=== PATIENT | male | born 1980 | race African-American/Black ===

== ENCOUNTER 2020-03-03 10:48 | Observation (INO) | payer MEDICAID, SELFPAY ==
[2020-03-03] VITALS (10 sets, daily range): BP systolic 130–151; BP diastolic 66–88; PULSE 64–81; RESP 15–18; TEMP 36.4–37.1; O2SAT 97–100; BMI 31.1; BMI 31.2; BMI 27.9
--- NOTE | 2020-03-03 11:03 | EKG12_ITS ---
Test Reason : Blood Pressure : / mmHG Vent. Rate : 075 BPM Atrial Rate : 075 BPM P-R Int : 142 ms QRS Dur : 082 ms QT Int : 362 ms P-R-T Axes : 032 001 003 degrees QTc Int : 404 ms Normal sinus rhythm Minimal voltage criteria for LVH, may be normal variant Borderline ECG Confirmed by MAZIN NOVAK, EAGLE ([id number]), editor trade journal DANIE COWART ([id number]) on 03/05/2020 7:52:57 AM Referred By: JUVENAL Confirmed By:EAGLE RETANA MD
--- NOTE | 2020-03-03 11:16 | NURSING ---
NO OLD EKGS
[2020-03-03] MEDS: Aspirin 81 MG TAB.CHEW 324 MG PO (11:17)
[2020-03-03 11:20] LABS: Absolute Lymphocyte Count 1.26 X10^3/uL (0.83-4.51); Absolute Neutrophil Count 2.5 X10^3/uL (2.0-7.7); Basophil# 0.05 X10^3/uL; Basophil% 1.2 % (0-1); Eosinophil# 0.06 X10^3/uL; Eosinophils% 1.5 % (0-5); Hematocrit 42.6 % (40-54); Hemoglobin 14.4 g/dL (13.0-16.5); Lymphocyte # 1.26 X10^3/ul (4.0); Lymphocyte % 30.8 % (19-41); Mean Corp Hgb Conc 33.8 g/dL (32-36); Mean Corpuscular Hgb 28.2 pg (27.0-32.0); Mean Corpuscular Volume 83.4 fL (80-94); Mean Platelet Vol. 9.1 fl (6.2-12.0); Monocyte# 0.23 X10^3/uL; Monocyte% 5.6 % (0-10); NRBC Flagged by Analyzer 0 % (0-5); Neutrophil # 2.48 X10^3/uL (2.7-7.7); Neutrophil % 60.7 % (47-70); Platelet Count 274 K/mm3 (150-450); RBC Distribution Width CV 12.7 % (11.6-14.6); RBC Distribution Width SD 38.4 fl (35.1-43.9); Red Blood Count 5.11 M/mm3 (4.6-6.2); White Blood Count 4.1 K/mm3 (4.4-11.0)
[2020-03-03 11:27] LABS: D-Dimer Quantitative (DVT/PE) 1.35 FEU/ug/m (0.27-0.49)
--- NOTE | 2020-03-03 11:27 | RAD_ITS ---
STUDY: X-RAY CHEST REASON FOR EXAM: Male, 39 years old. CHEST PAIN STARTING A FEW HOURS AGO TECHNIQUE: PA and lateral views of the chest. COMPARISON: None. FINDINGS: EKG electrodes are seen. The lungs are clear and expanded. There is no demonstrated pleural abnormality. Normal size heart. Normal mediastinum and rere. Normal visualized pulmonary arteries. Normal visualized aortic arch and descending thoracic aorta. Normal visualized thoracic spine. Normal visualized ribs, clavicles, and shoulders. There is no demonstrated abnormality of the visualized soft tissue structures of the upper abdomen. RAD/Chest PA and Lateral IMPRESSION: Normal x-ray examination of the chest. Electronically Signed: Sergei Silvestre MD at 12:09 EST , Service support ,
--- NOTE | 2020-03-03 11:27 | NURSING ---
Dr. Fernandez notified of elevated DDimer 1.35
[2020-03-03 11:28] LABS: Anion Gap 6 (5-15); BUN 14 mg/dL (7-18); BUN/Creat Ratio 10.3 RATIO (10-20); Calcium,Total 8.9 mg/dL (8.5-10.1); Chloride 105 mmol/L (98-107); Creatinine, Serum 1.36 mg/dL (0.70-1.30); EST Glomerular Filtration Rate 63 mL/min (>60); Est Glom Filt Rate - Afr Amer 76 mL/min (>60); Estimated Creatinine Clearance 81.63 ml/min; Glucose 131 mg/dL (74-106); Potassium 3.6 mmol/L (3.5-5.1); Sodium Level 138 mmol/L (136-145)
--- NOTE | 2020-03-03 11:30 | CT_ITS ---
STUDY: CTA CHEST REASON FOR EXAM: Male, 39 years old. CHEST PAIN RADIATION DOSAGE (If Supplied By Facility): CTDIvol = ( 11.87 ) mGy, DLP = ( 435.58 ) mGycm TECHNIQUE: The examination was performed with the intravenous administration of IV 100mL Isovue-370. Post-processing of the angiographic images was performed, with multiplanar reformation and 3D reconstruction. Individualized dose optimization techniques were used for this CT. COMPARISON: None. FINDINGS: Normal enhancement of the main pulmonary artery and right and left pulmonary arteries. Normal enhancement of the bilateral peripheral pulmonary arteries. There is no demonstrated pulmonary embolism. Normal thoracic aorta and visualized great vessels. There is no demonstrated aortic dissection. Normal heart and pericardium. Normal mediastinum. Normal hilar regions. Normal visualized trachea and bronchi. The lungs are well expanded. Normal pulmonary parenchyma. Normal pleura. Normal chest wall structures. Normal osseous structures. Questionable tiny gallstones along the dependent portion of the gallbladder lumen. Small hiatal hernia. CT/CTA Chest W/WO Contrast IMPRESSION: Normal CTA chest examination, without a demonstrated pulmonary embolism or arterial dissection. Electronically Signed: Sergei Silvestre MD at 12:14 EST , Service support ,
[2020-03-03 11:34] LABS: Alcohol, Blood (Medical)-Serum < 3.0 mg/dL
[2020-03-03 12:14] LABS: Amphetamine Urine VISTA NEGATIVE (<1000 ng/mL); Barbiturate Urine VISTA NEGATIVE (< 200 ng/mL); Benzodiazepine Urine VISTA NEGATIVE (< 200 ng/mL); Cocaine Urine VISTA NEGATIVE (< 300 ng/mL); Ecstacy Urine VISTA NEGATIVE (< 500 ng/mL); Methadone Urine VISTA NEGATIVE (< 300 ng/mL); PCP Urine VISTA NEGATIVE (< 25 ng/mL); THC Urine VISTA NEGATIVE (< 50 ng/mL); Vista UDS pH Range 5
[2020-03-03] MEDS: Nitroglycerin SL (ED/IMG/CATH) 0.4 MG TABLET SUBLINGUAL (13:21)
--- NOTE | 2020-03-03 13:42 | ED.DCSUM_ITS ---
History of Present Illness Chief Complaint: Chest Pain Informant: Patient Narrative: Patient presenting for evaluation secondary to chest pain. Patient reports that he was at work today he had a sudden onset of chest pain. He describes this as a heaviness on his chest that is associated with some lightheadedness and shortness of breath. Patient states that the pain is worse with taking deep breath. He is never really had any prior similar episodes in the past. Patient denies any palpitations. Denies any recent illnesses such as fever cough nausea vomiting diarrhea. Denies any cardiac disease, he is non-smoker but he does have a strong family history of hypertension diabetes, although he states that there is no strong family history of premature heart disease. He denies any DVT or PE risk factors. Review of systems otherwise negative. Past Medical History - Allergies and Home Meds Allergies/Adverse Reactions: Allergies No Known Allergies Allergy (Verified 03/03/20 11:17) Primary Care Physician: Care Physician,No Primary [Primary Care Provider] - Past Medical History: - - Denies personal medical history Lives: With Family Smoking Status: Never smoker Alcohol: None Drugs: None Review of Systems All systems negative except as indicated General: Denies: Chills, Fever, Sweats Eyes: Denies: Visual changes - bilaterally, Diplopia ENT: Denies: Rhinorrhea, Sore throat Cardiovascular: Reports: Chest pain Respiratory: Reports: Dyspnea Gastrointestinal: Denies: Abdominal pain, Nausea, Vomiting, Diarrhea, Melena, Hematochezia Genitourinary: Denies: Dysuria, Hematuria, Frequency Musculoskeletal: Denies: Back pain, Extremity Pain Skin: Denies: Rash, Wounds Neurological: Denies: Headache, Weakness, Numbness Physical Exam Vital Signs/Narrative: Vital Signs Temp Pulse Resp BP Pulse Ox 03/03/20 13:32 97.9 F 03/03/20 13:21 67 137/88 H 03/03/20 13:20 64 18 137/88 H 100 03/03/20 11:16 75 16 132/87 H 100 03/03/20 10:51 98.7 F 81 15 151/83 H 100 Inital Vital Signs reviewed: Yes General: Well nourished, Well developed, No Acute Distress Head: Normocephalic, Atraumatic Eyes: Perrl, EOMI ENT: Moist mucous membranes, No rhinorrhea Neck: Supple, Nontender Cardiovascular: Regular rate, Regular rhythm, No murmurs Respiratory: No distress, CTA bilaterally, Chest nontender Abdomen: Soft, Nontender, Nondistended, Normal bowel sounds Back: Nontender, Normal Inspection Extremities: Nontender, No edema Skin: Normal color, No rash Neurological: Alert, Oriented x3, Cranial nerves II-XII grossly intact, Normal Strength, Normal Sensation Psychological: Normal affect, Normal Mood Diagnostic/Tx/Re-eval Chest X-Ray - ED: 2 View, Read by ED Physician, Normal Clinical Impression(s) from Imaging Studies Chest X-Ray 03/03/20 11:27 IMPRESSION: Normal x-ray examination of the chest. Electronically Signed: Sergei Silvestre MD at 12:09 EST , Service support , Chest CTA 03/03/20 11:30 IMPRESSION: Normal CTA chest examination, without a demonstrated pulmonary embolism or arterial dissection. Electronically Signed: Sergei Silvestre MD at 12:14 EST , Service support , Laboratory Data 03/03/20 03/03/20 03/03/20 11:00 11:00 11:00 WBC 4.1 L RBC 5.11 Hgb 14.4 Hct 42.6 MCV 83.4 MCH 28.2 MCHC 33.8 RDW Std Deviation 38.4 RDW Coeff of Parveen 12.7 Plt Count 274 MPV 9.1 Immature Gran % (Auto) 0.200 Neut % (Auto) 60.7 Lymph % (Auto) 30.8 [place] % (Auto) 5.6 Eos % (Auto) 1.5 Baso % (Auto) 1.2 H Absolute Neuts (auto) 2.5 Absolute Lymphs (auto) 1.26 Nucleated RBC % 0 D-Dimer Quant (PE/DVT) 1.35 H* Sodium 138 Potassium 3.6 Chloride 105 Carbon Dioxide 27.0 Anion Gap 6 BUN 14 Creatinine 1.36 H Estim Creat Clear Calc 81.63 Est GFR (MDRD) Af Amer 76 Est GFR (MDRD) Non-Af 63 BUN/Creatinine Ratio 10.3 Glucose 131 H Calcium 8.9 Troponin I < 0.015 Urine Opiates Screen Urine Methadone Screen Ur Barbiturates Screen Ur Phencyclidine Scrn Ur Amphetamines Screen U Methamphetamin-MDMA U Benzodiazepines Scrn Urine Cocaine Screen U Cannabinoids Screen Ur Drug Screen Comment Ethyl Alcohol 03/03/20 03/03/20 11:00 11:49 WBC RBC Hgb Hct MCV MCH MCHC RDW Std Deviation RDW Coeff of Parveen Plt Count MPV Immature Gran % (Auto) Neut % (Auto) Lymph % (Auto) [place] % (Auto) Eos % (Auto) Baso % (Auto) Absolute Neuts (auto) Absolute Lymphs (auto) Nucleated RBC % D-Dimer Quant (PE/DVT) Sodium Potassium Chloride Carbon Dioxide Anion Gap BUN Creatinine Estim Creat Clear Calc Est GFR (MDRD) Af Amer Est GFR (MDRD) Non-Af BUN/Creatinine Ratio Glucose Calcium Troponin I Urine Opiates Screen NEGATIVE Urine Methadone Screen NEGATIVE Ur Barbiturates Screen NEGATIVE Ur Phencyclidine Scrn NEGATIVE Ur Amphetamines Screen NEGATIVE U Methamphetamin-MDMA NEGATIVE U Benzodiazepines Scrn NEGATIVE Urine Cocaine Screen NEGATIVE U Cannabinoids Screen NEGATIVE Ur Drug Screen Comment Ethyl Alcohol < 3.0 - Medical Decision Making Patient presented secondary to chest pain. Patient does not seem to have a ton of risk factors, but he has a very concerning story for the possibility of cardiac chest pain. Patient was given aspirin and nitroglycerin, he continues to have some pain. His initial cardiac enzyme was negative, EKG did not demonstrate any evidence of acute ischemia, did show some LVH type changes. D- dimer was pathologically elevated, so CT angiogram of the chest was ordered. This is read as negative. Patient's heart score is a maximum of 3, but he has a very concerning history I believe that he requires admission for observation and provocative stress testing. I will discuss this with the hospitalist. ED Disposition - Plan for ED Patient: Disposition: Acute Care Hospital [facility] Diagnosis: Chest pain
--- NOTE | 2020-03-03 14:33 | NURSING ---
DR RICE FOR DR POSEY
[2020-03-03] MEDS: Acetaminophen 325 MG Tablet 650 MG PO (16:10)
--- NOTE | 2020-03-03 18:24 | HP.PCM_ITS ---
History of Present Illness Date of Admission: 03/03/20 Chief Complaint: Chest pain The patient is a 39 year old M with a PMH as below who presents to the hospital with chest pain. 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 He was found to have an elevated D-dimer with a normal CTA of his chest, can proceed with a Doppler of his lower extremities he denies any swelling or calf pain. He has never had any pain like this before and it was wrapping around his chest and going up into his left armpit. He states that as long as he does not take any deep breaths then he does not have any chest pain. Denies any lightheadedness or dizziness and denies any significant radiation. Initial lab work demonstrated normal troponin with a nonischemic EKG, repeat troponin was also unremarkable. No significant family history of heart disease however he does have a significant family history of hypertension and diabetes. Past Medical History Allergies No Known Allergies Allergy (Verified 03/03/20 11:17) Home Medications: Ambulatory Orders Medication Instructions Recorded NK 03/03/20 Surgical History: no surgical history Lives: With Family Smoking Status: Never smoker Alcohol: None Drugs: None - *Family History Maternal History Items: Diabetes, Hypertension Paternal History Items: Diabetes, Hypertension Review of Systems Constitutional: Denies: Chills, Fever, Weight Change HEENT: Denies: Head Aches, Sinus Congestion, Sinus Drainage Cardiovascular: Reports: Chest Pain, Chest Pressure. Denies: Palpitations Respiratory: Denies: Cough, Shortness of Breath, Shortness of breath at rest, Shortness of breath upon exertion, Sputum production Gastrointestinal: Denies: Abdominal Pain, Nausea, Vomiting Genitourinary: Denies: Dysuria Musculoskeletal: Denies: Joint Pain, Joint Tenderness Skin: Denies: Rash, Wounds Neurological: Denies: Numbness, Tingling, Focal weakness Psychiatric: Denies: Anxiety, Depression Hematologic/ Lymphatic: Denies: Easy Bruising, Easy Bleeding VTE Information - Inpt Only VTE Present on Admission: No Patient Problems: Active and Suspected Problems Chest pain (Acute) - Physical Exam Vitals/I&O's: Vital Signs Temp Pulse Resp BP Pulse Ox 98 F 64 16 130/85 H 97 03/03/20 15:44 03/03/20 15:44 03/03/20 15:44 03/03/20 15:44 03/03/20 15:44 Oxygen Delivery Method Room Air Weight: 206 lb 5.643 oz Body Mass Index (BMI) 27.9 Intake and Output for Last 24 Hours 03/01/20 03/02/20 03/03/20 23:59 23:59 23:59 Intake Total 480 / 480 Balance 480 / 480 General: Alert, Oriented x3, Cooperative, No apparent distress HEENT: Atraumatic, PERRLA, EOMI, Normocephalic Oral: Moist Mucosa Neck: Supple, No JVD Lungs: Clear to auscultation, Normal air movement, No rhonchi, No wheeze, No rales Cardiovascular: Regular rate, Regular Rhythm, Normal S1, Normal S2, No murmurs, - - His chest pain was reproduced on palpation Abdomen: Soft, Non Tender, Non-Distended, No Hepato-splenomegaly Extremities: No edema, Capillary Refill Less than 3 Seconds Skin: No rashes, No breakdown Neurological: Neuro grossly intact, Sensory exam intact to light touch and pain Psych/Mental Status: Normal Affect, Appropriate Laboratory Results 03/03/20 11:00: WBC 4.1 L, RBC 5.11, Hgb 14.4, Hct 42.6, MCV 83.4, MCH 28.2, MCHC 33.8, RDW Std Deviation 38.4, RDW Coeff of Parveen 12.7, Plt Count 274, MPV 9.1, Immature Gran % (Auto) 0.200, Neut % (Auto) 60.7, Lymph % (Auto) 30.8, [place] % (Auto) 5.6, Eos % (Auto) 1.5, Baso % (Auto) 1.2 H, Absolute Neuts (auto) 2.5, Absolute Lymphs (auto) 1.26, Nucleated RBC % 0 03/03/20 11:00: D-Dimer Quant (PE/DVT) 1.35 H* 03/03/20 11:00: Sodium 138, Potassium 3.6, Chloride 105, Carbon Dioxide 27.0, Anion Gap 6, BUN 14, Creatinine 1.36 H, Estim Creat Clear Calc 81.63, Est GFR (MDRD) Af Amer 76, Est GFR (MDRD) Non-Af 63, BUN/Creatinine Ratio 10.3, Glucose 131 H, Calcium 8.9, Troponin I < 0.015 03/03/20 11:00: Ethyl Alcohol < 3.0 03/03/20 11:49: Urine Opiates Screen NEGATIVE, Urine Methadone Screen NEGATIVE, Ur Barbiturates Screen NEGATIVE, Ur Phencyclidine Scrn NEGATIVE, Ur Amphetamines Screen NEGATIVE, U Methamphetamin-MDMA NEGATIVE, U Benzodiazepines Scrn NEGATIVE, Urine Cocaine Screen NEGATIVE, U Cannabinoids Screen NEGATIVE, Ur Drug Screen Comment 03/03/20 14:13: Troponin I < 0.015 03/03/20 16:36: Troponin I Pending Current Medications Acetaminophen (Acetaminophen 325 Mg Tablet) 650 mg PO Q6H PRN PRN PRN Reason: Pain Score 1-10/Temp > 100.7 F Last Admin: 03/03/20 16:10 Dose: 650 mg Documented by: Melatonin (Melatonin 3 Mg Tablet) 3 mg PO QHS PRN PRN PRN Reason: INSOMNIA Nitroglycerin (Nitroglycerin (Inpatient Use) 0.4 Mg Tab.Subl) 0.4 mg SUBLINGUAL Q5M PRN PRN Reason: CARDIAC/CHEST PAIN Ondansetron HCl (Ondansetron 4 Mg/2 Ml Vial) 4 mg IV Q8H PRN PRN PRN Reason: NAUSEA/VOMITING Sodium Chloride (0.9% Saline Lock 10 Ml Syringe) 10 - 40 ml IV UD PRN PRN Reason: SALINE FLUSH Assessment/Plan All Active Problems Chest pain (Acute) 1. Chest pain rule out/elevated D-dimer -Initial troponin and follow-up troponin are both negative, EKG is nonischemic -He does have a headache from the nitroglycerin which did not relieve his chest pain -He does have tenderness to his left chest with palpation which is the pain that he was feeling prior to coming into the hospital -He did receive aspirin in the ED, will proceed with stress echo in the morning -Also obtain a lipid panel, and if necessary can start him on statin -Denies any trauma or anything like that to explain his chest wall muscle pain, and with his elevated D-dimer and a normal CTA we will proceed with venous Doppler of his lower extremities DVT: Low risk OBSV E&M: [id number] Initial observation care L2
--- NOTE | 2020-03-03 18:28 | VDLE_ITS ---
Reason For Study: elevated D-Dimer RIGHT LEFT GSV is normal. GSV is normal. CFV is compressible, spontaneous, phasic, CFV is compressible, spontaneous, phasic, competent and demonstrates normal competent, and demonstrates normal augmentation. augmentation. FV is compressible, spontaneous, phasic, FV is compressible, spontaneous, phasic, competent and demonstrates normal competent and demonstrates normal augmentation. augmentation. POP V is compressible, spontaneous, phasic, POP V is compressible, spontaneous, phasic, competent and demonstrates normal competent and demonstrates normal augmentation. augmentation. T/P Trunk is compressible. T/P Trunk is compressible. PTV is compressible. PTV is compressible. RT PerV is compressible. LT PerV is compressible. Procedure This is a venous duplex using B-mode, color flow and spectral Doppler. Exam performed portable in patient room. The exam was diagnostic. A preliminary report was called and/or faxed to PCU charge hand. Interpretation Summary No evidence for acute deep venous thrombosis bilateral lower extremities with patent and compressible bilateral great saphenous veins. Ordering Physician: Reji Boyd Performed By: Oliverio Montero RVT
--- NOTE | 2020-03-03 23:52 | PCS.PANDOC ---
PANDEMIC DOCUMENTATION INITIATED: Date: 03/03/2020 Time: [id number]
[2020-03-04 02:40] VITALS: BP 127/75; PULSE 66; RESP 18; TEMP 36.8; O2SAT 98
[2020-03-04 03:00] VITALS: PULSE 62
--- NOTE | 2020-03-04 05:55 | STEWCON_ITS ---
Reason For Study: CHEST PAIN Stress Results Protocol: Stress Echocardiogram Maximum Predicted HR: 183 bpm Target HR: 156 bpm % Maximum Predicted HR: 96 % DurationHeart Rate Stage (mm:ss) (bpm) BP Comment BASELINE 68 124/90DILUTED DEFINITY 4 CC USED LALITA PROTOCOL- STAGE 1 3:00 131 132/90NO SX LALITA PROTOCOL- STAGE 2 3:00 153 162/94NO SX LALITA PROTOCOL- STAGE 3 3:00 176 168/98DYSPNEA RECOVERY 98 118/74SX SUBSIDED Stress Duration: 9:00 mm:ss Maximum Stress HR: 176 bpm METS: 10 Baseline Echocardiogram Findings Stress Echo Wall motion Data Resting WM Intermediate WM Stress WM Resting Wall Motion Wall Motion Stress All segments Normal. All segments Hyperkinetic. Ejection Fraction 55 %. Ejection Fraction 75 %. Stress Results Heart rate response: Appropriate Blood pressure response: Resting hypertension-appropriate response Arrhythmias: Isolated PVC during exercise Functional status: Good Stopped secondary to: Dyspnea. EKG Data Baseline ECG: Sinus rhythm. Peak exercise ECG: No obvious ECG changes. Symptoms with Stress No report of chest discomfort during exercise or recovery. Interpretation Summary 1. Contrast injection performed 2. Negative (adequate) stress echocardiogram Ordering Physician: PILY RICE MD Referring Physician: NO PCP Performed By: Eileen Hui RDCS
--- NOTE | 2020-03-04 05:55 | EKG12_ITS ---
Test Reason : AM EKG Blood Pressure : / mmHG Vent. Rate : 068 BPM Atrial Rate : 068 BPM P-R Int : 148 ms QRS Dur : 094 ms QT Int : 390 ms P-R-T Axes : 032 007 000 degrees QTc Int : 414 ms Normal sinus rhythm Normal ECG Confirmed by MAZIN NOVAK, EAGLE ([id number]), book editor RICHELLE ALTMAN ([id number]) on 03/07/2020 9:48:21 AM Referred By: DR FARRELL Confirmed By:EAGLE RETANA MD
[2020-03-04 06:06] LABS: Absolute Lymphocyte Count 1.73 X10^3/uL (0.83-4.51); Absolute Neutrophil Count 1.7 X10^3/uL (2.0-7.7); Basophil# 0.06 X10^3/uL; Basophil% 1.6 % (0-1); Eosinophil# 0.08 X10^3/uL; Eosinophils% 2.1 % (0-5); Hematocrit 42.2 % (40-54); Hemoglobin 14.7 g/dL (13.0-16.5); Lymphocyte # 1.73 X10^3/ul (4.0); Lymphocyte % 45.2 % (19-41); Mean Corp Hgb Conc 34.8 g/dL (32-36); Mean Corpuscular Hgb 28.6 pg (27.0-32.0); Mean Corpuscular Volume 82.1 fL (80-94); Monocyte# 0.23 X10^3/uL; NRBC Flagged by Analyzer 0 % (0-5); Neutrophil # 1.72 X10^3/uL (2.7-7.7); Neutrophil % 44.8 % (47-70); Platelet Count 236 K/mm3 (150-450); RBC Distribution Width CV 12.7 % (11.6-14.6); RBC Distribution Width SD 37.7 fl (35.1-43.9); Red Blood Count 5.14 M/mm3 (4.6-6.2); White Blood Count 3.8 K/mm3 (4.4-11.0)
[2020-03-04 06:36] LABS: Anion Gap 4 (5-15); BUN 14 mg/dL (7-18); Calcium,Total 8.8 mg/dL (8.5-10.1); Chloride 105 mmol/L (98-107); Cholesterol 218 mg/dL (200); Creatinine, Serum 1.17 mg/dL (0.70-1.30); EST Glomerular Filtration Rate 74 mL/min (>60); Est Glom Filt Rate - Afr Amer 90 mL/min (>60); Estimated Creatinine Clearance 94.88 ml/min; Glucose 95 mg/dL (74-106); High Density Lipoprotein 47 mg/dL; Sodium Level 137 mmol/L (136-145); Triglycerides 133 mg/dL; Very Low Density Lipoprotein 27 mg/dL (5-40)
[2020-03-04 07:09] VITALS: PULSE 70
[2020-03-04 08:38] VITALS: BP 128/77; PULSE 86; RESP 14; TEMP 36.8; O2SAT 98
[2020-03-04 11:46] VITALS: PULSE 66
--- NOTE | 2020-03-04 13:15 | DCINST_ITS ---
- Discharge Diagnoses Current Active Problems: Current Active and Chronic Problems Chest pain (Acute) You will use the following diet at home:: Regular Your food should be the consistency of: Regular Your liquids should be the consistency of: Regular/Thin Discharge Activity: Return to Normal Activity Call your doctor if you observe: Fever of 101 or Higher, Shortness of breath, Dizziness, Fainting spells, Swelling in the ankles, Chest pain, Increased palpitations (irregular heartbeat) Allergies/Adverse Reactions: Allergies No Known Allergies Allergy (Verified 03/03/20 11:17) Medications to take at Discharge NK 03/03/20 Primary Care Physician: Care Physician,No Primary [Primary Care Provider] - Please follow up with your Primary Care Physician in: 3-5 days Test Results: Test results from this visit will be discussed in further detail at your follow- up appointment, if applicable.
[2020-03-04 14:35] VITALS: BP 143/84; PULSE 80; RESP 14; TEMP 36.6; O2SAT 99
--- NOTE | 2020-03-04 15:10 | DS.PCM_ITS ---
Discharge Date and Diagnosis - Problem List Patient Problems: Active and Suspected Problems Chest pain (Acute) Date of Admission: 03/03/20 Date of Discharge: 03/04/20 - Primary Discharge Diagnosis Acute Problems: Active Problems Chest pain (Acute) Hospital Course and Treatment Imaging Results: Clinical Impression(s) from Imaging Studies Chest X-Ray 03/03/20 11:27 IMPRESSION: Normal x-ray examination of the chest. Electronically Signed: Sergei Silvestre MD at 12:09 EST , Service support , Chest CTA 03/03/20 11:30 IMPRESSION: Normal CTA chest examination, without a demonstrated pulmonary embolism or arterial dissection. Electronically Signed: Sergei Silvestre MD at 12:14 EST , Service support , Reason For Study: CHEST PAIN Stress Results Protocol: Stress Echocardiogram Maximum Predicted HR: 183 bpm Target HR: 156 bpm % Maximum Predicted HR: 96 % DurationHeart Rate Stage (mm:ss) (bpm) BP Comment BASELINE 68 124/90DILUTED DEFINITY 4 CC USED LALITA PROTOCOL- STAGE 1 3:00 131 132/90NO SX LALITA PROTOCOL- STAGE 2 3:00 153 162/94NO SX LALITA PROTOCOL- STAGE 3 3:00 176 168/98DYSPNEA RECOVERY 98 118/74SX SUBSIDED Stress Duration: 9:00 mm:ss Maximum Stress HR: 176 bpm METS: 10 Baseline Echocardiogram Findings Stress Echo Wall motion Data Resting WM Intermediate WM Stress WM Resting Wall Motion Wall Motion Stress All segments Normal. All segments Hyperkinetic. Ejection Fraction 55 %. Ejection Fraction 75 %. Stress Results Heart rate response: Appropriate Blood pressure response: Resting hypertension-appropriate response Arrhythmias: Isolated PVC during exercise Functional status: Good Stopped secondary to: Dyspnea. EKG Data Baseline ECG: Sinus rhythm. Peak exercise ECG: No obvious ECG changes. Symptoms with Stress No report of chest discomfort during exercise or recovery. Interpretation Summary 1. Contrast injection performed 2. Negative (adequate) stress echocardiogram Venous Doppler: Interpretation Summary No evidence for acute deep venous thrombosis bilateral lower extremities with patent and compressible bilateral great saphenous veins. Operations: None Procedures: 2-D Echocardiogram, Stress test Summary of Care Provided: Per HPI: The patient is a 39 year old M with a PMH as below who presents to the hospital with chest pain. 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 He was found to have an elevated D-dimer with a normal CTA of his chest, can proceed with a Doppler of his lower extremities he denies any swelling or calf pain. He has never had any pain like this before and it was wrapping around his chest and going up into his left armpit. He states that as long as he does not take any deep breaths then he does not have any chest pain. Denies any lightheadedness or dizziness and denies any significant radiation. Initial lab work demonstrated normal troponin with a nonischemic EKG, repeat troponin was also unremarkable. No significant family history of heart disease however he does have a significant family history of hypertension and diabetes. Hospital Course: 1. Chest pain rule out/elevated D-dimer?39-year-old male presented from work with chest pain while being active. His pain was across his left chest and was tender to palpation and was the same pain that he was experiencing that brought him into the hospital. 3 troponins were negative, his EKG was nonischemic. He did have an elevated D-dimer and a CTA was done in the ED which was negative for PE. Venous Doppler was negative for DVTs bilaterally. He did have a stress echo which was unremarkable and did not show any ischemia. He did have a lipid panel on the morning of discharge which demonstrated a cholesterol of 218 and an LDL of 144. Was recommended that he follow-up as an outpatient with primary care doctor for follow-up and management if this becomes an issue as he gets older. He is very active and his BMI is 27.9. I discussed with him the plan for discharge today and he expressed understanding of the risk benefits of going home and would like to go home today. Patient Problems: Active and Suspected Problems Chest pain (Acute) - Physical Exam Vitals/I&O's: Vital Signs Temp Pulse Resp BP Pulse Ox 98 F 80 14 143/84 H 99 03/04/20 14:35 03/04/20 14:35 03/04/20 14:35 03/04/20 14:35 03/04/20 14:35 Oxygen Delivery Method Room Air Weight: 206 lb 5.643 oz Body Mass Index (BMI) 27.9 Intake and Output for Last 24 Hours 03/02/20 03/03/20 03/04/20 23:59 23:59 23:59 Intake Total 480 / 480 1270 / 1270 Balance 480 / 480 1270 / 1270 General: Alert, Oriented x3, Cooperative, No apparent distress HEENT: Atraumatic, PERRLA, EOMI, Normocephalic Oral: Moist Mucosa Neck: Supple, No JVD Lungs: Clear to auscultation, Normal air movement, No rhonchi, No wheeze, No rales Cardiovascular: Regular rate, Regular Rhythm, Normal S1, Normal S2, No murmurs, no chest pain on palpation or deep breathing today Abdomen: Soft, Non Tender, Non-Distended, No Hepato-splenomegaly Extremities: No edema, Capillary Refill Less than 3 Seconds Skin: No rashes, No breakdown Neurological: Neuro grossly intact, Sensory exam intact to light touch and pain Psych/Mental Status: Normal Affect, Appropriate Laboratory Results 03/03/20 16:36: Troponin I < 0.015 03/04/20 05:45: WBC 3.8 L, RBC 5.14, Hgb 14.7, Hct 42.2, MCV 82.1, MCH 28.6, MCHC 34.8, RDW Std Deviation 37.7, RDW Coeff of Parveen 12.7, Plt Count 236, MPV 9.0, Immature Gran % (Auto) 0.300, Neut % (Auto) 44.8 L, Lymph % (Auto) 45.2 H, Harrison % (Auto) 6.0, Eos % (Auto) 2.1, Baso % (Auto) 1.6 H, Absolute Neuts (auto) 1.7 L, Absolute Lymphs (auto) 1.73, Nucleated RBC % 0 03/04/20 05:45: Sodium 137, Potassium 4.0, Chloride 105, Carbon Dioxide 28.0, Anion Gap 4 L, BUN 14, Creatinine 1.17, Estim Creat Clear Calc 94.88, Est GFR (MDRD) Af Amer 90, Est GFR (MDRD) Non-Af 74, BUN/Creatinine Ratio 12.0, Glucose 95, Calcium 8.8, Triglycerides 133, Cholesterol 218 H, LDL Cholesterol 144 H, VLDL Cholesterol 27, HDL Cholesterol 47 Discharge Activity: Return to Normal Activity Call your doctor if you observe: Fever of 101 or Higher, Shortness of breath, Dizziness, Fainting spells, Swelling in the ankles, Chest pain, Increased palpitations (irregular heartbeat) Home Medications: Medications to take at Discharge NK 03/03/20 Primary Care Physician: Care Physician,No Primary [Primary Care Provider] - Please follow up with your Primary Care Physician in: 3-5 days Disposition: Home Minutes spent on discharge:: 35 Patient Condition:: Stable Medical Necessity - Tobacco Use Smoking Status: Never smoker Meaningful Use Info Meaningful Use Diagnoses (Choose all that apply): None applicable OBSV E&M: 23917 Observation care discharge
== END 2020-03-04 13:16 | disposition home or self-care (01) ==
LOC: ED 13:47 → PCU 14:46
PROVIDERS: Admitting Provider Family Medicine; Emergency Provider Emergency Medicine; Visit Provider Family Medicine
DX: R07.89 Other chest pain (principal); R42 Dizziness and giddiness; R06.02 Shortness of breath; Z82.49 Family history of ischemic heart disease and other diseases of the circulatory system; R79.89 Other specified abnormal findings of blood chemistry
CPT/HCPCS: 36415; 71046; 71275; 80048; 80061; 80307; 82077; 84484; 85025; 85379; 93005; 93017; 93350; 93970; 99218; 99285; Q9957; Q9967; A4216; C8928; G0378

== ENCOUNTER → 2020-10-24 15:49 | Outpatient (CLI) | payer MEDICAID, SELFPAY | PROVIDERS: Visit Provider Physician Assistant Surgical | DX: Z20.822 Contact with and (suspected) exposure to COVID-19 (principal) | CPT/HCPCS: 87635; U0005; U0003 ==

== ENCOUNTER 2021-02-23 15:18 | Outpatient (CLI) | payer MEDICAID, SELFPAY | END 2021-02-23 23:59 | disposition short-term general hospital (02) | LOC: LABSPEC 15:19 | PROVIDERS: Visit Provider Physician Assistant | DX: Z20.822 Contact with and (suspected) exposure to COVID-19 (principal) | CPT/HCPCS: 87635; U0003; U0005 ==

== ENCOUNTER 2021-05-27 16:44 | Outpatient (CLI) | payer MEDICAID, SELFPAY ==
--- NOTE | 2021-05-27 16:45 | RAD_ITS ---
STUDY: X-RAY - LUMBAR SPINE REASON FOR EXAM: Male, 40 years old. Pain TECHNIQUE: Frontal, lateral, and oblique view(s) of the lumbar spine were obtained. COMPARISON: None FINDINGS: Normal lumbar lordosis. There is no substantial scoliosis. There is grade 1 anterior listhesis at L5-S1. There is right pars interarticularis defect at L5. Normal vertebral bodies and endplates. Normal disc space heights. There is no acute fracture. The soft tissue structures are unremarkable. RAD/L/S Spine Min 4 Views IMPRESSION: Spondylolisthesis with right spondylolysis at the lumbosacral junction. Electronically Signed: Yanick Damon MD at 17:15 EDT ,
--- NOTE | 2021-05-27 16:50 | RAD_ITS ---
STUDY: X-RAY - THORACIC SPINE REASON FOR EXAM: Male, 40 years old. Pain TECHNIQUE: 3 view(s) of the thoracic spine were obtained. COMPARISON: None. FINDINGS: Normal kyphosis of the thoracic spine. There is no substantial scoliosis. Normal thoracic vertebrae and endplates. Normal disc space heights. There is no fracture. The soft tissue structures are unremarkable. RAD/Thoracic Spine 3 Views IMPRESSION: Normal x-ray examination of the thoracic spine. Electronically Signed: Yanick Damon MD at 17:20 EDT ,
== END 2021-05-27 23:59 | disposition home or self-care (01) ==
PROVIDERS: Referring Provider Physician Assistant; Visit Provider Physician Assistant
DX: M54.50 Low back pain, unspecified (principal)
CPT/HCPCS: 72072; 72110

== ENCOUNTER 2021-06-29 08:13 | Emergency (ER) | payer OTHER, MEDICAID, SELFPAY ==
[2021-06-29 08:17] VITALS: BP 160/93; PULSE 111; RESP 17; TEMP 36.4; O2SAT 99; BMI 28.9
--- NOTE | 2021-06-29 09:02 | RAD_ITS ---
STUDY: X-RAY - LEFT HAND REASON FOR EXAM: Male, 40 years old. Injury/Pain at the first metacarpal phalangeal joint TECHNIQUE: 3 view(s) of the hand. COMPARISON: None. FINDINGS: Normal radiocarpal articulation. Normal distal radioulnar joint. Normal visualized carpal bones. Normal carpal articulations Normal carpometacarpal articulation of the thumb. Normal second through fifth carpometacarpal joints. Normal metacarpi. Normal metacarpophalangeal joint of the thumb. Normal interphalangeal joint of the thumb. Normal proximal and distal phalanges of the thumb. Normal metacarpophalangeal joints of the second through fifth fingers. Normal proximal and distal interphalangeal joints of the second through fifth fingers. Normal phalanges of the second through fifth fingers. The soft tissue structures are unremarkable. RAD/Hand Min 3 Views IMPRESSION: Normal x-ray examination of the hand. Electronically Signed: Sergei Silvestre MD at 9:13 EDT ,
--- NOTE | 2021-06-29 09:30 | EX.ED.UPPERE ---
HPI History of Present Illness HPI Narrative: Patient presents with injury to his left thumb that occurred today while he was at work. Patient states he was working with a rubber mold when it kicked back and hit him in the end of his left thumb. Patient states he felt and heard a pop at that time. Patient states his pain is worse with any movement. Patient admits to some numbness and tingling in his thumb. Patient describes his pain as sharp. Patient denies any other injuries. Chief Complaint: Upper Extremity Injury Informant: patient Occured/Mechanism Mechanism/Context: Yes blunt trauma Onset/Context/Timing Onset: Today Context: Sudden Onset Timing: Continuous Quality of Pain: Sharp Location: Left thumb Worsened by: Movement Relieved by: Nothing Associated Symptoms Associated Symptoms: Positive for Parasthesia; Negative for Weakness and Loss of Funtion [facility] Medical History Acute bronchitis, unspecified Acute myofascial strain of lumbar region Acute thoracic myofascial strain Encounter for screening for COVID-19 Allergy/AdvReac Type Severity Reaction Status Date / Time No Known Allergies Allergy Verified 06/29/21 08:14 Social History Smoking Status: Never smoker ROS ROS ED Constitutional Constitutional ED: Denies chills or fever(s) Eyes Eyes: Denies blurry vision or change in vision ENT ENT ED: Denies rhinorrhea or sore throat Cardiovascular Cardiovascular: Denies chest pain or palpitations Respiratory/Chest Respiratory/Chest: Denies cough or dyspnea Gastrointestinal Gastrointestinal: Denies nausea or vomiting Genitourinary Genitourinary ED: Denies dysuria or hematuria Musculoskeletal Musculoskeletal: Reports back pain; Denies neck pain Integumentary Denies abscess or rash Neurologic Neurologic: Denies headache(s) or weakness Allergic/Immunologic Allergic/Immunologic ED: Denies mouth swelling or urticaria EXAM Physical Exam Const Vital Signs: 06/29/21 08:17 Temperature 97.6 F L Temperature Source Temporal Pulse Rate 111 H Respiratory Rate 17 Blood Pressure 160/93 H Blood Pressure Mean 115 Pulse Ox 99 Oxygen Delivery Method Room Air Positive well nourished and well developed General Appearance ED: well developed and NAD HEENT Reports moist mucous membranes Neck full ROM and supple Extremity Extremity Narrative: There is diffuse tenderness over the left thumb. There is mild edema. There is no obvious deformity. Range of motion was limited in all motions of the left thumb secondary to pain. Sensation was intact to light touch in the radial, median, and ulnar areas. Strength is 5/5 in the radial, median, and ulnar areas. Radial pulses are equal bilaterally. Capillary refill is less than 2 seconds in all digits. Neuro oriented x3, CN's II-XII intact bilaterally, moves all extremities, no focal motor deficits and no sensory deficits noted Sensorium / Orientation: alert Motor Exam: strength 5/5 throughout Psych mental status grossly normal MDM MDM MDM Narrative Medical decision making narrative: X-rays of the left hand were obtained. There are 3 views. On my interpretation, there is no acute fracture. There is no dislocation. There is no soft tissue swelling. Radiologist also interpreted the x-rays and agrees. Patient was given a thumb spica splint. Patient was instructed to ice and elevate the left thumb. Patient was given a prescription for Naprosyn. Patient was instructed to follow-up with his primary care physician or the now clinic in 5 to 7 days. Patient was given limitations for work. Patient understood and was agreeable with the plan. All questions were answered. Radiography Diagnostic Testing: Clinical Impression(s) from Imaging Studies Hand X-Ray 06/29/21 09:02 IMPRESSION: Normal x-ray examination of the hand. Electronically Signed: Sergei Silvestre MD at 9:13 EDT Reading Location ID and State: [facility] / [place] , Service support , Discharge Plan Triage Chief Complaint: Upper Extremity Injury ED Provider: Rudy Milian Dx/Rx/DC Orders Clinical Impression: Left thumb sprain Instructions: ED Finger Sprain Stand Alone Forms: Work Status Form Primary Care Provider: Care Physician,No Primary Referrals: Care Physician,No Primary [Primary Care Provider] - Clinic,NOW [NON-STAFF] - 5-7 Days Disposition Disposition: Home, Self Care
[2021-06-29] MEDS: Naproxen 250 MG Tablet 500 MG PO (10:59)
--- NOTE | 2021-06-29 11:12 | ED.RN ---
was able to find a thumb spica splint downstairs
== END 2021-06-29 11:22 | disposition home or self-care (01) ==
PROVIDERS: Emergency Provider Emergency Medicine; Visit Provider Emergency Medicine
DX: S63.602A Unspecified sprain of left thumb, initial encounter (principal); W22.8XXA Striking against or struck by other objects, initial encounter; Y99.0 Civilian activity done for income or pay; Y92.89 Other specified places as the place of occurrence of the external cause
CPT/HCPCS: 73130; 99283

== ENCOUNTER 2021-09-11 09:30 | Outpatient (RCR) | payer OTHER, SELFPAY ==
--- NOTE | 2021-07-24 07:33 | HP.OTEVAL ---
Patient's Visit Information GENNA DURHAM III is a 40 year old M, referred to Occupational Therapy by PÉREZ Kapoor, with a diagnosis of left thumb sprain strain. 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 He thought he broke his thumb. pt pedro to ER x-ray taken no fx and place in thumb spica brace. pt arrives today with pain and tenderness at base of his left thumb- DOI was 06/29/21. 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 - Pain left thumb 2 - ROM Wrist: right55/55 left 60/50 CMC: right 5 left 0 MP: right 65 left 50 IP: right 55 left 50 Radial Abduction: right 45 left 45 Opposition: kapandji opposition scale right 10 left 8 ROM Comments: all other digits are WNL - Strength Director Of Pharmacy: right 130# left 5# Lateral Pinch: right 16# left unable Tripod Pinch: right 16# left unable - Sensation Sensation Comments: pt states tingling sensation at palm of hand and radiates up the dorsum of his arm. - Quick DASH-Disab of Arm,Shoulder& Hand Quick DASH Score: 40.0000 - Goals Goal:: PT will demo an increase in biology laboratory assistant strength by 50# to increase independent with basic occupations of daily living to return pt to PLOF by D/C. Pt will demo an increase in lateral and tripod pinch by 10# to increase pts independent with opening baggies, containers at PLOF by D/C. Goal:: Pt will report pain no greater than 1/10 with use of affected hand with BADLs and IADLs by d/c. Goal:: Pt will demo understanding of joint protection and ergonomics when performing BADLs and IADLs by d/c. Pt will demo understanding of adaptive Equipment use to decrease stress on joints to allow pt to perform BADSL and IADLS at KATHERINE level. Goal:: pt will demo the ability to lift 60* with good lifting mechanics to increase pts ind. with ADLs work task. - Rehabilitation General Assessment: pt demo with pain and soft tissue tenderness in thenar muscle region along with biology laboratory assistant and pinch weakness- pt limited with work and daily occupations and would benefit from skilled OT services 2-3x week for 4 weeks to decrease pain and return pts strength to return to his PLOF with ADls and work tasks. Pt demo understanding and agree to POC. Rehabilitation Potential: Good - Anticipated Interventions A/AAROM/PROM, Strengthening, Triggerpoint Release, Modalities, Orthoses, Joint Protection/Energy Conservation, Ergonomic Education, ADL Training, Education re Diagnosis - Visit Plan Frequency: 2-3x /Week Duration: 6 Weeks TEXT: Thank you for the opportunity to evaluate your patient. For Medicare and Medicare HMO plans, please review the plan of care and approve it. It will need to be FAXED BACK to us at [phone] for Medicare purposes. Please let me know if there are questions or concerns regarding this plan of care. Physician Signature: Date:
--- NOTE | 2021-08-18 14:00 | HP.OTREVAL ---
PÉREZ Kapoor, It has been my pleasure to treat GENNA DURHAM III over the last 9 visits for left thumb sprain strain. Please see the progress note below for an update on the occupational therapy plan of care! Subjective: pt states he is doing OK - Objective/Function: Increased pain 2.5 /10 post tx d.t trigger point release and soft tissue mob. Plan Frequency: 2-3x /Week Duration: 2 Weeks Plan: left time broker strength 35#. left lateral pinch 6#. left tripod pinch 6#. pt is making gains with his strength but continues to have pain with use- advised pt he will have some discomfort but but pain greater than a 6 he should stop activity that is causing pain- pt would benefit from further skilled OT services 2-3x week for 2 more weeks- Goals - Goals Patient Goals: Regain Mobility, Decrease Pain, Return to Work Goal:: PT will demo an increase in time broker strength by 50# to increase independent with basic occupations of daily living to return pt to PLOF by D/C. Pt will demo an increase in lateral and tripod pinch by 10# to increase pts independent with opening baggies, containers at PLOF by D/C. Goal:: Pt will report pain no greater than 1/10 with use of affected hand with BADLs and IADLs by d/c. Goal:: Pt will demo understanding of joint protection and ergonomics when performing BADLs and IADLs by d/c. Pt will demo understanding of adaptive Equipment use to decrease stress on joints to allow pt to perform BADSL and IADLS at KATHERINE level. Goal:: pt will demo the ability to lift 60* with good lifting mechanics to increase pts ind. with ADLs work task. Anticipated Interventions Anticipated Interventions: A/AAROM/PROM, Strengthening, Triggerpoint Release, Modalities, Orthoses, Joint Protection/Energy Conservation, Ergonomic Education, ADL Training, Education re Diagnosis Please do not hesitate to contact me at [phone] by phone or if you have questions or concerns regarding this new plan of care! Sincerely, Magdalene Hall, OTR/L, CHT
--- NOTE | 2021-09-11 09:54 | HP.OTREVAL ---
PÉREZ Kapoor, It has been my pleasure to treat GENNA DURHAM III over the last 18 visits for left thumb sprain strain. Please see the progress note below for an update on the occupational therapy plan of care! Subjective: pt states he is doing ok- feels he has been ed. on how to keep his hand protected- pt states he can now put his socks on without difficulty- pt still complains of pain with use of thumb when holding a land/ fork or spoon - denies pain waking him up at night- does not drive. Objective/Function: pt demo full ROM of left thumb. radial cmc abduction 55*. cmc flexion 5*. MP flexion 60*. IP flexion 55*. left human capital manager 60# (pressure in thaner region stops pt from increase force). left lateral pinch 8#. left tripod pinch 8#. therapy did US to increase circulation and healing-. transitioned to strengthening as pt tolerated. he continues to have pain with tasks and resistive testing- possible still soft tissue healing-. Plan Visits in this POC: 18 Plan: end of approved visits- pt to return to Dr. Goals - Goals Patient Goals: Regain Mobility, Decrease Pain, Return to Work Goal:: PT will demo an increase in human capital manager strength by 50# to increase independent with basic occupations of daily living to return pt to PLOF by D/C. Pt will demo an increase in lateral and tripod pinch by 10# to increase pts independent with opening baggies, containers at PLOF by D/C. Goal:: Pt will report pain no greater than 1/10 with use of affected hand with BADLs and IADLs by d/c. Goal:: Pt will demo understanding of joint protection and ergonomics when performing BADLs and IADLs by d/c. Pt will demo understanding of adaptive Equipment use to decrease stress on joints to allow pt to perform BADSL and IADLS at KATHERINE level. Goal:: pt will demo the ability to lift 60* with good lifting mechanics to increase pts ind. with ADLs work task. Anticipated Interventions Anticipated Interventions: A/AAROM/PROM, Strengthening, Triggerpoint Release, Modalities, Orthoses, Joint Protection/Energy Conservation, Ergonomic Education, ADL Training, Education re Diagnosis Please do not hesitate to contact me at [phone] by phone or if you have questions or concerns regarding this new plan of care! Sincerely, Magdalene Hall, OTR/L, CHT
--- NOTE | 2021-11-24 16:51 | HP.OTDCSUM ---
It has been my pleasure to treat GENNA DURHAM III under orders from PÉREZ Kapoor, for the diagnosis of left thumb sprain strain for a total of 18 visit(s). Please see the following information for a summary of their discharge status. % Improvement: 75 Objective/Function: pt demo full ROM of left thumb. radial cmc abduction 55*. cmc flexion 5*. MP flexion 60*. IP flexion 55*. left mortgage processor 60# (pressure in thaner region stops pt from increase force). left lateral pinch 8#. left tripod pinch 8#. therapy did US to increase circulation and healing-. transitioned to strengthening as pt tolerated. he continues to have pain with tasks and resistive testing- possible still soft tissue healing-. Patient Goals: Regain Mobility, Decrease Pain, Return to Work Goal:: PT will demo an increase in mortgage processor strength by 50# to increase independent with basic occupations of daily living to return pt to PLOF by D/C. Pt will demo an increase in lateral and tripod pinch by 10# to increase pts independent with opening baggies, containers at PLOF by D/C. Goal:: Pt will report pain no greater than 1/10 with use of affected hand with BADLs and IADLs by d/c. Goal:: Pt will demo understanding of joint protection and ergonomics when performing BADLs and IADLs by d/c. Pt will demo understanding of adaptive Equipment use to decrease stress on joints to allow pt to perform BADSL and IADLS at KATHERINE level. Goal:: pt will demo the ability to lift 60* with good lifting mechanics to increase pts ind. with ADLs work task. Plan: end of approved visits- pt to return to If there are questions or concerns regarding this patient's occupational therapy, please fell free to call me at [phone]. Thank you for the referral of this patient. Sincerely, Magdalene Hall, OTR/L, CHT
== END 2021-09-11 19:00 | disposition home or self-care (01) ==
LOC: OT 09:30
PROVIDERS: Referring Provider Physician Assistant Surgical; Visit Provider Physician Assistant Surgical
DX: S63.602D Unspecified sprain of left thumb, subsequent encounter (principal); X58.XXXD Exposure to other specified factors, subsequent encounter
CPT/HCPCS: 97035; 97110; 97140; 97166; 97530

== ENCOUNTER 2022-02-12 21:09 | Emergency (ER) | payer MEDICAID, SELFPAY ==
[2022-02-12 21:10] VITALS: BP 129/94; PULSE 119; RESP 18; TEMP 36.6; O2SAT 100; BMI 29.8
--- NOTE | 2022-02-12 21:15 | RAD_ITS ---
INDICATION: cough EXAMINATION/TECHNIQUE: X-RAY - XR Chest 1 View COMPARISON: 03/03/2020 FINDINGS: LINES/DEVICES: None. LUNGS: No consolidation, edema or effusion. No pneumothorax. MEDIASTINUM AND CARDIOVASCULAR STRUCTURES: Cardiac silhouette not enlarged. Central airways and mediastinal contour are unremarkable. BONES AND SOFT TISSUES: Unremarkable. RAD/Chest 1 View (Portable) IMPRESSION: No radiographic evidence of acute cardiopulmonary disease. Electronically Signed: Benji Franklin MD at 21:52 EST ,
--- NOTE | 2022-02-13 00:47 | EDS_ITS ---
HPI History of Present Illness Chief Complaint: Cough Informant: patient and spouse/S.O. Narrative Narrative: Patient has about 3 days maybe 4 of symptoms. Evidently his son has them 2. He has a cough but no sputum production. He has myalgias. He has slight headache. He had a couple soft stools but no watery diarrhea. He has had some nausea. He did vomit but the last time he did that was this morning. He is able to eat and drink now but he still has nausea. He has had subjective fevers. No abdominal pain. No urinary symptoms. No rash. [facility] Medical History Acute bronchitis, unspecified Acute myofascial strain of lumbar region Acute thoracic myofascial strain Encounter for screening for COVID-19 History of COVID-19 Home Medications naproxen 500 mg tablet 500 mg PO BID PRN #20 tabs 06/29/21 [Rx Last Taken Unknown] ondansetron 4 mg disintegrating tablet 4 mg PO Q8H PRN nausea and vomiting #10 tabs 02/13/22 [Rx Last Taken Unknown] promethazine 25 mg tablet 25 mg PO TID PRN nausea and vomiting #10 tabs 02/13/22 [Rx Last Taken Unknown] Allergy/AdvReac Type Severity Reaction Status Date / Time No Known Allergies Allergy Verified 02/12/22 21:09 Social History Smoking Status: Never smoker ROS ROS ED Constitutional Constitutional ED: Reports chills and subjective Eyes Eyes: Denies change in vision ENT ENT ED: Reports rhinorrhea and sore throat Cardiovascular Cardiovascular: Denies chest pain or palpitations Respiratory/Chest Respiratory/Chest: Reports cough; Denies sputum Gastrointestinal Gastrointestinal: Reports diarrhea, nausea and vomiting; Denies abdominal pain Genitourinary Genitourinary ED: Denies dysuria Musculoskeletal Musculoskeletal: Reports myalgias Integumentary Denies rash Neurologic Neurologic: Reports headache(s); Denies paresthesias or weakness Endocrine Endocrinology: Denies polydipsia or polyuria Hematologic/Lymphatic Hematologic/Lymphatic: Denies lymphadenopathy Allergic/Immunologic Allergic/Immunologic ED: Denies urticaria EXAM Physical Exam Const Vital Signs: 02/12/22 21:10 Temperature 97.9 F Temperature Source Temporal Pulse Rate 119 H Respiratory Rate 18 Blood Pressure 129/94 H Blood Pressure Mean 105 Pulse Ox 100 Oxygen Delivery Method Room Air Positive well nourished and well developed Constitutional Narrative: Patient is curled up in blankets and a jacket. But he is awake alert appropriate. Breathing is easy. Saturations are 100% on room air. General Appearance ED: well developed and NAD; Negative for cyanotic or diaphoretic HEENT Reports moist mucous membranes HEENT Narrative: Mucous membranes are still moist. No exudate. No facial tenderness. Eyes General Eye ED: Negative for scleral icterus Neck no JVD Resp normal respiratory effort and clear to auscultation bilaterally Resp Narrative: Lungs are clear bilaterally. No wheezes rhonchi or rales. He does have a bit of a dry cough when I have him take a deep breath. No pain with breathing Auscultation: Negative for rales, rhonchi or wheezes Cardio regular rate, regular rhythm and no murmurs Rate: other Other Details: Rate is about 85 or 90 now. Is regular. I hear no m urmur. GI normal to inspection, nondistended, normoactive bowel sounds and non-tender Back/Spine no CVA tenderness Psych mental status grossly normal Skin no rashes or lesions noted MDM MDM MDM Narrative Medical decision making narrative: Chest x-ray is negative. Influenza A is positive. He has symptoms consistent with this. I do not think he would benefit from Tamiflu as he is already beyond 3 days of symptoms. I will write for some Zofran and Phenergan to help with the nausea. He can use Tylenol and Motrin for aches and pains. We discussed reasons to return. I explained that this is about a 7 or 8-day illness. Radiography Diagnostic Testing: Clinical Impression(s) from Imaging Studies Chest X-Ray 02/12/22 21:15 IMPRESSION: No radiographic evidence of acute cardiopulmonary disease. Electronically Signed: Benji Franklin MD at 21:52 EST , Chest x-ray single view looked at by me and read by radiology shows no acute process. Discharge Plan Triage Chief Complaint: Cough ED Provider: Mitch Martinez Dx/Rx/DC Orders Clinical Impression: Influenza A, Nausea Instructions: ED Influenza (Adult) Prescriptions: New ondansetron 4 mg tablet,disintegrating 4 mg PO Q8H PRN (Reason: nausea and vomiting) Qty: 10 0RF promethazine 25 mg tablet 25 mg PO TID PRN (Reason: nausea and vomiting) Qty: 10 0RF No Action naproxen 500 MG tablet 500 mg PO BID PRN Qty: 20 0RF Stand Alone Forms: ED Work / School Excuse Primary Care Provider: Care Physician,No Primary Referrals: Kian Bear MD [Med Staff - Active Staff] - 3-5 Days if not improving Care Physician,No Primary [Primary Care Provider] - Disposition Disposition: Home, Self Care
[2022-02-13 00:56] VITALS: RESP 18
[2022-02-13] MEDS: Ondansetron ODT 4 MG Tablet PO (01:03)
== END 2022-02-13 01:05 | disposition home or self-care (01) ==
PROVIDERS: Emergency Provider Emergency Medicine; Visit Provider Emergency Medicine
DX: J10.1 Influenza due to other identified influenza virus with other respiratory manifestations (principal); R11.2 Nausea with vomiting, unspecified; R19.7 Diarrhea, unspecified; R51.9 Headache, unspecified
CPT/HCPCS: 71045; 87804; 99283

== ENCOUNTER 2023-05-31 03:40 | Emergency (ER) | payer BC, SELFPAY ==
[2023-05-31 03:41] VITALS: BP 169/100; PULSE 95; RESP 16; TEMP 36.9; O2SAT 97; BMI 26.6
--- NOTE | 2023-05-31 04:08 | EX.ED.VIS.EY ---
HPI History of Present Illness Chief Complaint: Eye Problem Informant: patient Narrative Narrative: Patient is a 42-year-old male with no significant past medical history. He states that his was diagnosed with pinkeye just yesterday and he slept on her pillow after she left this morning. He states throughout the day he has noticed redness and irritation to his right eye with no trauma. He reports that this evening he then developed purulent discharge. He reports he wears glasses but denies contact lens use. He otherwise has been feeling normal. With his recent sick exposure and now symptoms he is concerned that he has developed the infection and therefore comes in for evaluation [facility] Medical History Acute bronchitis, unspecified Acute myofascial strain of lumbar region Acute thoracic myofascial strain Encounter for screening for COVID-19 History of COVID-19 Home Medications naproxen 500 mg tablet 500 mg PO BID PRN #20 tabs 06/29/21 [Rx Last Taken Unknown] ondansetron 4 mg disintegrating tablet 4 mg PO Q8H PRN nausea and vomiting #10 tabs 02/13/22 [Rx Last Taken Unknown] promethazine 25 mg tablet 25 mg PO TID PRN nausea and vomiting #10 tabs 02/13/22 [Rx Last Taken Unknown] qcntftux-ivoirayun-enjpwypn 3.5 mg/mL-10,000 unit/mL-0.1% eye drops (Maxitrol) 2 drp RIGHT EYE 4X/DAY 10 days #5 mL 05/31/23 [Rx Last Taken Unknown] Allergy/AdvReac Type Severity Reaction Status Date / Time No Known Allergies Allergy Verified 05/31/23 03:41 Social History Smoking Status: Never smoker ROS [facility] ED Constitutional Constitutional ED: Denies chills or fever(s) Eyes Eyes: Reports other Details: Positive right eye redness and discharge ENT ENT ED: Reports rhinorrhea; Denies sore throat Cardiovascular Cardiovascular: Denies chest pain Respiratory/Chest Respiratory/Chest: Denies cough or dyspnea Gastrointestinal Gastrointestinal: Denies abdominal pain, diarrhea, nausea or vomiting Genitourinary Genitourinary ED: Denies dysuria Musculoskeletal Musculoskeletal: Denies myalgias Integumentary Denies rash Neurologic Neurologic: Denies headache(s) Hematologic/Lymphatic Hematologic/Lymphatic: Denies easy bleeding or easy bruising EXAM Physical Exam Const Vital Signs: 05/31/23 03:41 Temperature 98.4 F Temperature Source Oral Pulse Rate 95 Respiratory Rate 16 Blood Pressure 169/100 H Blood Pressure Mean 123 Pulse Ox 97 Oxygen Delivery Method Room Air Positive well nourished and well developed General Appearance ED: well developed HEENT HEENT Narrative: Cobblestoning is noted in the posterior pharynx consistent with sinus drainage without airway edema or compromise No signs of infection noted in the posterior pharynx Eyes Eyes Narrative: Pupils are equal reactive to light and accommodation and extraocular muscles are intact Right eye has diffuse scleral injection with thickening and fullness of the conjunctiva. There is purulent discharge noted as well. No obvious foreign body the upper lid was everted. Neck supple Neck Narrative: No nuchal rigidity or meningeal signs Resp normal respiratory effort and clear to auscultation bilaterally Cardio regular rate and regular rhythm Extremity normal to inspection Neuro oriented x3, CN's II-XII intact bilaterally, moves all extremities and no sensory deficits noted Sensorium / Orientation: alert Motor Exam: strength 5/5 throughout Psych mental status grossly normal Skin no rashes or lesions noted and no wounds Skin Narrative: No surrounding erythema warmth or soft tissue swelling of the right orbit to suggest periorbital cellulitis MDM MDM MDM Narrative Medical decision making narrative: Patient arrived to the ER hypertensive otherwise with stable vitals. He denied contact lens use and reports known sick contact and his with similar symptoms. Differential diagnosis is for viral versus bacterial conjunctivitis versus periorbital cellulitis versus corneal abrasion. Exam does not show any retained signs of corneal foreign body or abrasion and patient denies any recent trauma. He does not wear contact lenses and my concern for Pseudomonas infection is low. History and exam is consistent with viral versus bacterial conjunctivitis but based on the purulent discharge and sudden onset of symptoms I do feel this is most likely bacterial and therefore he will be covered for infection. As he does not have signs of systemic infection or periorbital cellulitis or orbital cellulitis there is no need for further workup and he is otherwise safe for discharge History & Record Review Discussion w/independent historian: Patient Discharge Plan Triage Chief Complaint: Eye Problem ED Provider: Saqib Zapien Dx/Rx/DC Orders Clinical Impression: Conjunctivitis, Hypertension Instructions: Conjunctivitis Caused by Infection Prescriptions: New neomycin-polymyxin B-dexameth [Maxitrol] 3.5mg/mL-10,000 unit/mL-0.1 % drops,suspension 2 drp RIGHT EYE 4X/DAY 10 Days Qty: 5 1RF No Action naproxen 500 MG tablet 500 mg PO BID PRN Qty: 20 0RF ondansetron 4 mg tablet,disintegrating 4 mg PO Q8H PRN (Reason: nausea and vomiting) Qty: 10 0RF promethazine 25 mg tablet 25 mg PO TID PRN (Reason: nausea and vomiting) Qty: 10 0RF Stand Alone Forms: ED Work / School Excuse Primary Care Provider: Care Physician,No Primary Referrals: Paul Chan MD [Med Staff - Active Staff] - Care Physician,No Primary [Primary Care Provider] - Activity Restrictions/Additional Instructions: Use the prescribed eyedrops to resolve your infection. Use the drops for at least 7 days but you can max out at 10 days if symptoms are persisting. Follow-up with ophthalmology or return to the ER should you have any further concerns Disposition Disposition: Home, Self Care
[2023-05-31] MEDS: Neomycin/Polymyxin/Dexameth 5ML OPTH.BTL 2 DRP RIGHT EYE (04:18)
[2023-05-31 04:21] VITALS: BP 159/99; PULSE 79; RESP 14; TEMP 36.6; O2SAT 100
== END 2023-05-31 04:22 | disposition home or self-care (01) ==
PROVIDERS: Emergency Provider Emergency Medicine; Visit Provider Emergency Medicine
DX: H10.9 Unspecified conjunctivitis (principal); I10 Essential (primary) hypertension
CPT/HCPCS: 99282

== ENCOUNTER 2023-12-19 22:20 | Emergency (ER) | payer BC, SELFPAY ==
[2023-12-19 22:20] VITALS: BP 162/108; PULSE 100; RESP 19; TEMP 36.9; O2SAT 100; BMI 27.2
--- NOTE | 2023-12-19 22:32 | EX.ED.VIS.UR ---
HPI HPI - URI History of Present Illness Chief Complaint: Cold Sx Informant: patient Onset/Context/Timing Onset: Days (3) Context: Gradual Onset Timing: Continuous Quality: Congested Location: Chest Worsened by: - (Laying flat) Relieved by: - (Nothing) Associated Symptoms Associated Symptoms: Positive for Nasal Congestion, Headache, Sinus Pressure, Nausea, Vomiting, Diarrhea, Shortness of Breath and Productive Cough; Negative for Myalgias, Chest Pain, Nonproductive cough or Hemoptysis Narrative Narrative: Patient presents with chest and upper respiratory congestion that has been getting worse over the last 3 days. Patient states he feels congested in his chest. Patient states his and children have had similar symptoms. Patient states his symptoms are worse when he lays flat. Patient admits to some headache, sinus pressure, and nasal congestion. Patient states he is coughing up some yellow-green sputum. Patient admits to some shortness of breath. Patient denies any chest pain. Patient denies any nausea or vomiting. ROS ROS ED Constitutional Constitutional ED: Reports fever(s); Denies chills Eyes Eyes: Denies blurry vision or change in vision ENT ENT ED: Reports rhinorrhea and sore throat Cardiovascular Cardiovascular: Denies chest pain or palpitations Respiratory/Chest Respiratory/Chest: Reports cough and dyspnea Gastrointestinal Gastrointestinal: Denies nausea or vomiting Genitourinary Genitourinary ED: Denies dysuria or hematuria Musculoskeletal Musculoskeletal: Denies back pain or neck pain Integumentary Denies abscess or rash Neurologic Neurologic: Reports headache(s); Denies weakness Allergic/Immunologic Allergic/Immunologic ED: Denies mouth swelling or urticaria [facility] Medical History URI (upper respiratory infection) Conjunctivitis, left eye History of COVID-19 Acute myofascial strain of lumbar region Acute thoracic myofascial strain Acute bronchitis, unspecified Encounter for screening for COVID-19 Home Medications ?Medication ?Instructions ?Recorded ?Last Taken ?Type prednisone 20 mg tablet 20 mg PO BID #10 tabs 10/04/23 Unknown Rx tobramycin 0.3 % eye drops 1 drp ophthalmic (eye) Q2H #5 mL 10/04/23 Unknown Rx Allergy/AdvReac Type Severity Reaction Status Date / Time No Known Allergies Allergy Verified 12/19/23 22:20 Surgical History no surgical history no surgical history Social History Smoking Status: Never smoker EXAM Physical Exam Const Vital Signs: 12/19/23 22:20 12/19/23 22:36 12/19/23 22:36 Temperature 98.5 F Temperature Source Oral Pulse Rate 100 Respiratory Rate 19 H Respiratory Effort Normal Normal Non-Labored Respiratory Depth Normal Respiratory Pattern Normal Normal Blood Pressure 162/108 H Blood Pressure Mean 126 Pulse Ox 100 Oxygen Delivery Method Room Air Room Air 12/19/23 23:22 Temperature 98.5 F Temperature Source Oral Pulse Rate 67 Respiratory Rate 18 Respiratory Effort Respiratory Depth Respiratory Pattern Blood Pressure 153/106 H Blood Pressure Mean 121 Pulse Ox 97 Oxygen Delivery Method Room Air Positive well nourished and well developed General Appearance ED: well developed and NAD HEENT normocephalic and atraumatic Neck supple, no meningeal signs and no JVD Resp normal respiratory effort Auscultation: rhonchi throughout Cardio Rate: regular rate Rhythm: regular rhythm GI non-tender and non-distended Palpation: soft Neuro oriented x3, CN's II-XII intact bilaterally and no sensory deficits noted Sensorium / Orientation: alert Motor Exam: strength 5/5 throughout Psych mental status grossly normal MDM MDM MDM Narrative Medical decision making narrative: Differential diagnosis includes pneumonia, bronchitis, and viral upper respiratory infection. Chest x-ray will be obtained to assess for pneumonia and bronchitis. COVID-19, influenza, and RSV PCR will be obtained to assess for viral infection. Lab Data Lab results narrative: COVID-19 PCR was reviewed and was negative. Influenza PCR was reviewed and was negative for influenza A and influenza B. RSV PCR was reviewed and was negative. Radiography Chest X-Ray - ED: 2 View, Read by ED Physician, Read by Radiologist and No Acute Disease Diagnostic Testing: Clinical Impression(s) from Imaging Studies Chest X-Ray 12/19/23 22:40 IMPRESSION: No radiographic evidence of acute cardiopulmonary disease. Electronically Signed: Deo Vallejo DO at 22:59 EST , PA and lateral chest x-ray was obtained. There are 2 views. On my independent interpretation, lung zaragoza are clear. There is normal cardiac silhouette. Bony thorax is normal. There is no acute process noted. Radiologist also interpreted the x-ray and agrees. Treatment and Re-Evaluation Narrative: Patient was advised of his findings. Patient was advised that his symptoms related to a viral bronchitis or upper respiratory infection. Patient was instructed to drink plenty of fluids. Patient was instructed to continue using [id number] decongestants and cough medications. Patient was instructed to follow-up with his primary care physician in 5 to 7 days. Patient understood and was agreeable with the plan. All questions were answered. Discharge Plan Triage Chief Complaint: Cold Sx ED Provider: Rudy Milian Dx/Rx/DC Orders Clinical Impression: URI (upper respiratory infection), Acute bronchitis, unspecified Instructions: ED Bronchitis, No Antibiotic (Adult), ED URI, Viral, No Abx (Adult) Prescriptions: No Action tobramycin 0.3 % drops 1 drp ophthalmic (eye) Q2H Qty: 5 0RF Rx Instructions: to affected eye while awake first 24 hours, then 3x/day on days 2-5 prednisone 20 mg tablet 20 mg PO BID Qty: 10 0RF Stand Alone Forms: ED Work / School Excuse Primary Care Provider: Care Physician,No Primary Referrals: Rudy Miller MD [Med Staff - Wagon Driver Salesperson] - 5-7 Days Care Physician,No Primary [Primary Care Provider] - Print Language: Burmese Disposition Disposition: Home, Self Care
--- NOTE | 2023-12-19 22:40 | RAD_ITS ---
EXAM: XR CHEST, 2 VIEWS CLINICAL INDICATION: Cough TECHNIQUE: Frontal and lateral views of the chest. COMPARISON: 02/12/2022 FINDINGS: LUNGS AND PLEURAL SPACES: No significant abnormality. No consolidation or edema. No pneumothorax. No effusion. HEART: No significant abnormality. Cardiac silhouette not enlarged. MEDIASTINUM: Central airways and mediastinal contour are unremarkable. BONES/JOINTS: No significant abnormality. No acute fracture. SOFT TISSUES: No significant abnormality. RAD/Chest PA and Lateral IMPRESSION: No radiographic evidence of acute cardiopulmonary disease. Electronically Signed: Deo Vallejo DO at 22:59 EST ,
[2023-12-19 23:22] VITALS: BP 153/106; PULSE 67; RESP 18; TEMP 36.9; O2SAT 97
[2023-12-20 00:03] VITALS: BP 140/89; PULSE 68; RESP 18; TEMP 36.9; O2SAT 97
== END 2023-12-20 00:05 | disposition home or self-care (01) ==
PROVIDERS: Emergency Provider Emergency Medicine; Referring Provider Emergency Medicine; Visit Provider Emergency Medicine
DX: J20.9 Acute bronchitis, unspecified (principal); R51.9 Headache, unspecified; R11.2 Nausea with vomiting, unspecified; R19.7 Diarrhea, unspecified; J06.9 Acute upper respiratory infection, unspecified; Z86.16 Personal history of COVID-19
CPT/HCPCS: 71046; 87631; 99283

== ENCOUNTER 2024-01-11 03:41 | Emergency (ER) | payer BC, SELFPAY ==
[2024-01-11 03:42] VITALS: BP 164/109; PULSE 97; RESP 18; TEMP 36.9; O2SAT 96; BMI 27.8
[2024-01-11 03:45] VITALS: BP 164/109; PULSE 97; RESP 18; TEMP 36.9; O2SAT 96
[2024-01-11 03:47] VITALS: O2SAT 96
--- NOTE | 2024-01-11 04:10 | EX.ED.VIS.UR ---
HPI HPI - URI History of Present Illness Chief Complaint: Cold Sx Informant: patient Narrative Narrative: Patient has had cold symptoms for the past 3 weeks, he was seen here at the onset had a negative chest x-ray and a negative COVID/influenza/RSV swab. Kids have had similar illness and earaches, now tonight he has developed a left earache and trouble hearing. No vertigo. No otorrhea. No other new symptoms, he is not having fevers, but the cough and congestion he describes as fairly miserable. He denies dyspnea or chest symptoms. He states the nurse at work is listen to his chest and told him he sounds clear without any crackles. ROS ROS ED Constitutional Constitutional ED: Denies chills or fever(s) Eyes Eyes: Denies change in vision ENT ENT ED: Reports ear pain left, nasal congestion, rhinorrhea and sore throat Cardiovascular Cardiovascular: Denies chest pain or palpitations Respiratory/Chest Respiratory/Chest: Reports cough and sputum; Denies dyspnea Gastrointestinal Gastrointestinal: Denies abdominal pain, diarrhea, nausea or vomiting Genitourinary Genitourinary ED: Denies dysuria or hematuria Musculoskeletal Musculoskeletal: Denies myalgias or neck pain Integumentary Denies abscess or rash Neurologic Neurologic: Reports headache(s); Denies paresthesias or weakness Psychiatric Psychiatric: Denies depression or suicidal thoughts Endocrine Endocrinology: Denies polydipsia or polyuria [facility] Medical History URI (upper respiratory infection) Conjunctivitis, left eye History of COVID-19 Acute myofascial strain of lumbar region Acute thoracic myofascial strain Acute bronchitis, unspecified Encounter for screening for COVID-19 Home Medications ?Medication ?Instructions ?Recorded ?Last Taken ?Type azithromycin 250 mg tablet 250 mg PO DAILY #4 TABLETS 01/11/24 Unknown Rx Allergy/AdvReac Type Severity Reaction Status Date / Time No Known Allergies Allergy Verified 01/11/24 03:42 Social History Smoking Status: Never smoker EXAM Physical Exam Const Vital Signs: 01/11/24 03:42 01/11/24 03:45 01/11/24 03:45 Temperature 98.4 F 98.4 F Temperature Source Oral Oral Pulse Rate 97 97 Respiratory Rate 18 18 Respiratory Effort Normal Non-Labored Respiratory Depth Respiratory Pattern Normal Blood Pressure 164/109 H 164/109 H Blood Pressure Mean 127 127 Pulse Ox 96 96 Oxygen Delivery Method Room Air Room Air 01/11/24 03:47 Temperature Temperature Source Pulse Rate Respiratory Rate Respiratory Effort Normal Non-Labored Respiratory Depth Normal Respiratory Pattern Normal Blood Pressure Blood Pressure Mean Pulse Ox Oxygen Delivery Method Room Air Positive well nourished and well developed General Appearance ED: well developed and NAD HEENT Reports moist mucous membranes HEENT Narrative: Right TM and EAC normal. Left TM erythematous and bulging consistent with otitis media without perforation, EAC normal. No significant discomfort with manipulation of the pinna or the tragus on the left. Hoarseness of voice without stridor. Nasal congestion present without purulent discharge. normocephalic and atraumatic Face and Sinus: Negative for sinus tenderness Throat: Negative for posterior oropharynx abnormal Eyes PERRL and EOMs intact bilaterally Neck no lymphadenopathy, supple and no meningeal signs Resp normal respiratory effort and clear to auscultation bilaterally Cardio no murmurs Rate: regular rate; Negative for tachycardic Rhythm: regular rhythm Neuro oriented x3, CN's II-XII intact bilaterally and no sensory deficits noted Sensorium / Orientation: alert Motor Exam: strength 5/5 throughout Skin Lesions: no lesions Rashes: no rashes MDM MDM MDM Narrative Medical decision making narrative: His vital signs are noted, he is not hypoxic, he sounds like he has a head cold but he is not having any sinus tenderness to suggest an acute sinus infection nor is he having pain in 1 particular area to suggest that. His lungs are clear, his left ear appears to have an otitis media, and given all of this I think antibiotics are indicated. First-line would be Augmentin, however am putting him on a azithromycin since we have seen an uptick in walking pneumonia recently. Do not think he needs a repeat x-ray right now, but I am going to give him this to cover atypicals in addition to typical otitis media organisms. He is encouraged to continue using [id number] cold medications, and he was given a dose of ibuprofen here for the earache in addition to the azithromycin dose. Discharge Plan Triage Chief Complaint: Cold Sx ED Provider: Yanick Luis Dx/Rx/DC Orders Clinical Impression: Acute left otitis media, URI (upper respiratory infection) Instructions: ED Otitis Media Adult, ED URI, Viral, No Abx (Adult) Prescriptions: New azithromycin 250 mg tablet 250 mg PO DAILY Qty: 4 0RF Primary Care Provider: Care Physician,No Primary Referrals: Doctor,Your [Non-Staff] - 1 Week if not improving Print Language: Nepali Disposition Disposition: Home, Self Care
[2024-01-11] MEDS: Ibuprofen 600 MG Tablet PO (04:19)
[2024-01-11] MEDS: Azithromycin 250 MG Tablet 500 MG PO (04:19)
[2024-01-11 04:22] VITALS: BP 152/79; PULSE 94; RESP 18; TEMP 36.9; O2SAT 96
== END 2024-01-11 04:23 | disposition home or self-care (01) ==
PROVIDERS: Emergency Provider Emergency Medicine; Visit Provider Emergency Medicine
DX: J06.9 Acute upper respiratory infection, unspecified (principal); H66.92 Otitis media, unspecified, left ear; R51.9 Headache, unspecified
CPT/HCPCS: 99284

== ENCOUNTER → 2024-07-10 | Outpatient (CLI) | payer BC, SELFPAY ==
--- NOTE | 2024-07-10 10:15 | US_ITS ---
PROCEDURE: ABDOMEN LIMITED 07/10/2024 REASON FOR EXAM: RUQ PAIN COMPARISON: None FINDINGS: Liver: Grossly normal size and echotexture. Gallbladder: Small gallstones are seen within the gallbladder lumen. Common bile duct: Normal measuring 4 mm. . Pancreas: Normal Other: The right kidney is unremarkable. US/Abdomen Limited IMPRESSION: Multiple small gallstones are seen along the dependent portion of the gallbladd er lumen. Reading Location: [place] [id number]
[2024-07-10 11:54] LABS: Hemoglobin 14.3 g/dL (13.0-16.5); Mean Corp Hgb Conc 34.9 g/dL (32-36); Mean Corpuscular Hgb 27.9 pg (27.0-32.0); Mean Corpuscular Volume 79.9 fL (80-94); Platelet Count 255 K/mm3 (150-450); RBC Distribution Width CV 12.3 % (11.6-14.6); RBC Distribution Width SD 35.1 fl (35.1-43.9); Red Blood Count 5.13 M/mm3 (4.6-6.2); White Blood Count 4.2 K/mm3 (4.4-11.0)
[2024-07-10 12:11] LABS: ALB/GLOB Ratio 1.5 RATIO (0.9-2.4); AST(SGOT) 24 U/L (<=37); Alanine Aminotransfer ALT/SGPT 14 U/L (<=46); Albumin, Serum 4.5 g/dL (3.5-5.0); Alkaline Phosphatase 72 U/L (40-129); Amylase 92 U/L (28-100); Anion Gap 13 (5-15); BUN 9 mg/dL (4-19); BUN/Creat Ratio 9.3 RATIO (10-20); Calcium,Total 9.4 mg/dL (7.6-11.0); Carbon Dioxide 22.9 mmol/L (21.0-32.0); Chloride 100 mmol/L (98-108); Creatinine, Serum 0.97 mg/dL (0.70-1.20); EST Glomerular Filtration Rate 101 (>60); Glucose 257 mg/dL (70-99); Potassium 4.3 mmol/L (3.3-5.1); Protein, Total 7.5 g/dL (5.9-8.4); Sodium Level 136 mmol/L (133-145); Total Bilirubin 0.85 mg/dL (0.00-1.30)
[2024-07-10 12:19] LABS: Erythrocyte Sedimentation Rate 7 mm/hr (0-20)
== END | disposition home or self-care (01) ==
LOC: US 10:12
PROVIDERS: PCP Internal Medicine; Referring Provider Internal Medicine; Visit Provider Internal Medicine
DX: R19.7 Diarrhea, unspecified (principal)
CPT/HCPCS: 36415; 76705; 80053; 82150; 85027; 85652